=== PATIENT | female | born 1985 | race Caucasian/White ===

== ENCOUNTER 2018-07-23 23:31 | Emergency (ER) | payer MEDICAID ==
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
--- NOTE | 2018-07-24 07:53 | Diagnostic Imaging Report ---
CT scan cervical spine HISTORY: Pain, trauma Total DLP equals 635 CTDI equals 27.0 Axial sections were obtained through the cervical spine. Additional sagittal and coronal reformatted images are provided. There is reversal of the cervical lordosis which may be associated with spasm. Alignment is normal. Minimal narrowing of the C5-6 and C6-7 disc spaces. Small spur formation noted off the anterior margins of the bodies of C3 5 and C6. No significant extradural abnormalities. No acute abnormalities. No fractures. The prevertebral soft tissues appear normal. IMPRESSION: 1. Reversal of the cervical lordosis which may be associated with spasm 2. No acute focal bony abnormalities 3. Mild degenerative changes
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
== END 2018-07-24 06:00 | disposition home or self-care (01) ==
LOC: ER 23:31
DX: S16.1XXA Strain of muscle, fascia and tendon at neck level, initial encounter (principal); S60.221A Contusion of right hand, initial encounter; S80.811A Abrasion, right lower leg, initial encounter; S80.211A Abrasion, right knee, initial encounter; Z88.8 Allergy status to other drugs, medicaments and biological substances; Y04.0XXA Assault by unarmed brawl or fight, initial encounter; Y93.89 Activity, other specified; Y92.89 Other specified places as the place of occurrence of the external cause; Y99.8 Other external cause status
CPT/HCPCS: 99284; 96372; 73130; 81025; 72125; 90715; J1885